=== PATIENT | male | born 1985 | race Caucasian/White ===

== ENCOUNTER 2017-07-05 09:53 | Day surgery (SDC) | payer OTHER ==
[2017-06-22 12:44] VITALS: Ht 182.9 cm; Wt 113.4 kg
--- NOTE | 2017-06-22 12:47 | DIAGNOSTIC IMAGING REPORT ---
CHEST 2 VIEWS ROUTINE CLINICAL HISTORY: PAT preoperative evaluation COMPARISON STUDY: No previous studies for comparison. FINDINGS: The bones soft tissues and hemidiaphragms are normal. The cardiomediastinal silhouette is normal. The lungs are clear. The pulmonary vasculature is normal. IMPRESSION: Negative chest. The above report was generated using voice recognition software. It may contain grammatical, syntax or spelling errors. Electronically signed by: Judd Valenzuela M.D. 06/22/2017 12:46 PM Dictated Date/Time: 06/22/2017 12:46 PM
[2017-06-22 12:54] LABS: BASO % 0.3 %; BASO ABS # 0.02 K/uL (0-0.2); EOS % 2.6 %; EOS ABS # 0.18 K/uL (0-0.5); HEMATOCRIT 43.9 % (42-52); HEMOGLOBIN 15.3 g/dL (14.0-18.0); IG# 0.02 K/uL (0.00-0.02); LYMPH % 30.5 %; LYMPH ABS # 2.08 K/uL (1.2-3.4); MEAN CELL VOLUME 86.1 fL (80-100); MEAN CORPUSCULAR HGB CONC 34.9 g/dl (32-36); MEAN PLATELET VOLUME 9.2 fL (7.4-10.4); MONO ABS # 0.61 K/uL (0.11-0.59); NEUT % 57.3 %; PLATELET COUNT 207 K/uL (130-400); RED CELL DISTRIBUTION WIDTH SD 41.3 fL (36.4-46.3); WHITE BLOOD COUNT 6.81 K/uL (4.8-10.8)
--- NOTE | 2017-06-22 13:05 | PAT Medication Instructions ---
Service Date Jun 22, 2017. Current Home Medication List Sertraline (Zoloft), 50 MG PO QPM Medication Instructions For Your Scheduled Surgery - Take the following medications as scheduled the night before surgery: Sertraline (Zoloft), 50 MG PO QPM If you have any questions please call us at [phone] or [phone] or [phone]
[2017-06-22 14:01] LABS: CALCIUM 8.5 mg/dl (8.5-10.1); CREATININE 0.88 mg/dl (0.60-1.40); POTASSIUM 4.1 mmol/L (3.5-5.1)
[~2017-07-05] VITALS: Ht 182.9 cm; Wt 113.4 kg
[~2017-07-05 09:53] MED LIST: CEFAZOLIN 2000MG IV PUSH 10 ML IV SCH; DEXAMETHASONE SOD INJ 4 MG/ML VIAL ONE; FENTANYL CITRATE INJ 50 MCG/1 ML 2 ML VIAL ONE; LACTATED RINGER'S 1000ML 1,000 ML IV SCH; LIDOCAINE HCL 2% 2 ML VIAL (20MG/ML) ONE; MIDAZOLAM HCL 1 MG/ML 2ML VIAL ONE; ONDANSETRON INJ 2 MG/ML 2 ML VIAL ONE; PROPOFOL IV EMULSION 10 MG/ML 20 ML VIAL IV ONE; SERT50TA PO
[2017-07-05] MEDS ORDERED: CEPH500C2 PO ×2 (10:13→13:41)
[2017-07-05 10:17] VITALS: BP 129/76; PULSE 91; TEMP 37.5; O2SAT 94
[2017-07-05] MEDS ORDERED: MIDAZOLAM HCL 1 MG/ML 2ML VIAL ONE (11:25)
[2017-07-05] MEDS ORDERED: BACITRACIN OINT 15 GM TUBE ONE (11:34)
[2017-07-05] MEDS ORDERED: BUPIVACAINE 0.5 % 5 MG/1 ML MPF 30ML VIAL ONE (11:35)
--- NOTE | 2017-07-05 11:46 | History & Physical Bridge Note ---
H&P Re-Evaluation Bridge Note: I have examined the patient, reviewed the History & Physical and in the interval since the performance of the History & Physical I have noted the following changes of clinical significance: No changes noted
[2017-07-05] MEDS ORDERED: ATROPINE SULFATE 0.1 MG/ML 5ML SYR IV PRN (12:00)
[2017-07-05] MEDS ORDERED: ONDANSETRON INJ 2 MG/ML 2 ML VIAL IV PRN (12:00)
[2017-07-05] MEDS ORDERED: KETOROLAC TROMETHAMINE 30 MG/ML VIAL IV. PRN (12:00)
[2017-07-05] MEDS ORDERED: FENTANYL CITRATE INJ 50 MCG/1 ML 2 ML VIAL IV PRN (12:00)
[2017-07-05] MEDS ORDERED: LABETALOL HCL IV 5 MG/ML 20ML IV PRN (12:00)
[2017-07-05] MEDS ORDERED: FENTANYL CITRATE INJ 50 MCG/1 ML 2 ML VIAL ONE ×2 (12:07→12:49)
[2017-07-05] MEDS ORDERED: DOCU-94 PO (13:41)
[2017-07-05] MEDS ORDERED: OXYC7.5T65 PO (13:41)
--- NOTE | 2017-07-05 13:43 | Discharge Instructions ---
Discharge Instructions Date of Service Jul 05, 2017. Admission Reason for Admission: Bilateral Hydrocele Discharge Discharge Diagnosis / Problem: Bilateral hydrocoele s/p hydrocoelectomy Discharge Goals Goal(s): Decrease discomfort, Improve function, Therapeutic intervention Activity Recommendations Activity Limitations: as noted below Lifting Limitations: no more than 25 pounds, gradually increase as tolerated ( over 5 days) Exercise/Sports Limitations: rest today, gradually increase as tolerated (no heavy exercise for 1 week) May Resume Sexual Activity: after two weeks Shower/Bathe: tomorrow (may shower in 24 hours, no tub bath) Driving or Machine Use: resume 1 day after discharge . Instructions / Follow-Up Instructions / Follow-Up Scrotal support and ice packs x 2 days then as needed for discomfort and swelling. Bacitracin ointment to incision three times a day Current Hospital Diet Patient's current hospital diet: Discharge Diet Recommended Diet: Regular Diet Procedures Procedures Performed: Scrotal exploration, Bilateral Hydrocelectomy, left side clot evacuation Pending Studies Studies pending at discharge: yes List of pending studies: Pathology report Medical Emergencies . Who to Call and When: Medical Emergencies: If at any time you feel your situation is an emergency, please call 911 immediately. . Non-Emergent Contact Non-Emergency issues call your: Urologist Call Non-Emergent contact if: you have a fever, temperature is above 101, your pain is not controlled, your pain is worsening, your pain is unusual for you, your pain is concerning you, wound has increased drainage, wound has increased redness, wound has increased pain, you have any medication questions . . "Provider Documentation" section prepared by Cristian Hernandez. . VTE Core Measure Inpt VTE Proph given/why not?: SCD's [place] Drug Monitoring Program Search Results: patient reviewed within database, no issues identified
[2017-07-05] MEDS ORDERED: OXYCODONE/ACETAMINOPHEN 5-325 TAB PO PRN ×2 (13:45)
--- NOTE | 2017-07-05 13:46 | [facility] Operative Report ---
Operative Report Operative Date Jul 05, 2017. Pre-Operative Diagnosis Bilateral Hydrocele Post-Operative Diagnosis Same as preop, left sided traumatic hematocoele Procedure(s) Performed Scrotal exploration, Bilateral Hydrocelectomy, left side clot evacuation Surgeon Dr. Marcela Hernandez Live In Housekeeper Nanny Surgeon(s) none Estimated Blood Loss 50 cc Findings Large hematocoele (~150 cc) on left-hand side after trauma 2-3 days ago evacuated, bilateral hydrocoele corrected and imbricated. Specimens A: left hydrocele sac B: right appendix epididymis C: right hydrocele sac Drains 1/4" Alpine Anesthesia GALMA + local Complication(s) None Disposition Recovery Room / PACU Indications 32-year-old male with a history of bilateral hydrocele, left greater than right was here today for correction. He notes an episode of trauma several days ago and feels he might of ruptured his hydrocele at that time. He is currently suffering from bruising, left greater than right with a decrease in the firmness of his hydrocele. It is felt that any traumatic changes can be corrected at the time of this intervention today. Please see H&P for further details. Intravenous Ancef used for antibiotic coverage and SCDs used for DVT prophylaxis. Description of Procedure Patient was properly identified and brought into the operative suite after identification of appropriate consent the chart. General anesthesia with laryngeal mask was initiated and patient was prepped and draped in the standard fashion for this procedure. Full timeout procedure was followed. Midline incision along the scrotal raphae was made using a 15 blade and brought into the left hemiscrotum towards the hydrocele sac. A fair amount of subcutaneous edema and old blood was present. Dissecting the hydrocele sac free from the surrounding scrotal tissue required a greater than average amount of Bovie cautery and sharp dissection due to inflammation and blood products within the subcutaneous tissue. Eventually the hydrocele sac was able to be delivered from the scrotum. This was then sharply entered with drainage of approximately 150 mL of old clot present around the testicle on this side. Testicle was noted to be viable with no evidence of injury or damage. A cord block was performed using plain lidocaine. The appendix testis and epididymis were removed. Wound was generously irrigated and excess tunica vaginalis was removed and sent for pathologic analysis. This was everted using a running 2-0 Vicryl suture. Hemostasis was obtained using Bovie cautery, suture ligature and ties as necessary. Tunica vaginalis was appreciated to indeed have ruptured on the medial side over the course of the dissection. Attention was then turned to the right side where easier dissection was undertaken. Hydrocele sac was delivered from the scrotum and sharply entered with drainage of straw-colored fluid. A scrotal timoteo was removed and a larger appendix epididymis was sent for pathologic analysis after removal. Hydrocele sac was trimmed with tissue being sent for pathology. This was everted again with a running 2-0 Vicryl suture. Adequate aperture for drainage of the cord was left intact. Cord block was also performed on this side prior to significant dissection. After this was complete the scrotum was generously irrigated. An incision was made in the inferior scrotum allowing for passage of a quarter- inch Alpine drain. This was passed through the midline scrotal wall to allow for drainage of both sides. This was secured in place using a 3-0 silk suture and trimmed short. Dartos fascia was closed using a running 2-0 Vicryl suture with care being taken to avoid entrapment of the Alpine drain. The skin was closed with vertical mattress sutures using 2-0 chromic. Bacitracin ointment was placed over the skin incision followed by fluffs and a scrotal support. Additional local anesthesia was provided level of the skin incision. General anesthesia was reversed patient was transferred to the recovery room in stable condition. Follow-up care: Patient will be discharged home with a prescription for Percocet , Keflex and Colace. Outpatient appointment for drain removal and wound check is confirmed. Postoperative limitations are reviewed. Patient is instructed to contact our service should he note any fevers, chills, nausea, vomiting or other difficulties in the postoperative period. I attest to the content of the Intraoperative Record and any orders documented therein. Any exceptions are noted below.
[2017-07-05 14:28] VITALS: BP 136/76; PULSE 68; TEMP 36.3; O2SAT 95
[2017-07-05 14:45] VITALS: BP 136/76; PULSE 74; TEMP 36.3; O2SAT 95
[2017-07-05 15:15] VITALS: BP 125/67; PULSE 72; TEMP 37.2; O2SAT 94
--- NOTE | 2017-07-05 15:23 | Anesthesiology Progress Note ---
Anesthesia Post Op Note Date & Time Jul 05, 2017 at 15:23 Vital Signs Pain Intensity: 0 Vital Signs Past 12 Hours Date Time Temp Pulse Resp B/P (MAP) Pulse Ox O2 Delivery O2 Flow Rate FiO2 07/05/17 14:28 36.3 68 20 136/76 95 Room Air 07/05/17 14:10 36.4 66 18 148/83 94 Room Air 07/05/17 14:00 70 21 153/84 94 Room Air 07/05/17 13:50 79 21 150/85 100 Oxymask 10 07/05/17 13:40 88 17 149/84 100 Oxymask 10 07/05/17 13:34 36.4 84 19 167/84 100 Oxymask 10 07/05/17 10:17 37.5 91 20 129/76 (93) 94 Room Air Notes Mental Status: alert / awake / arousable, participated in evaluation Pt Amnestic to Procedure: Yes Nausea / Vomiting: adequately controlled Pain: adequately controlled Airway Patency, RR, SpO2: stable & adequate BP & HR: stable & adequate Hydration State: stable & adequate Anesthetic Complications: no major complications apparent
[2017-07-05 16:00] VITALS: BP 132/68; PULSE 75; TEMP 37.2; O2SAT 96
== END 2017-07-05 16:00 | disposition home or self-care (01) ==
LOC: C.ACU 09:53
PROVIDERS: ATTEND Urology
DX: N43.3 Hydrocele, unspecified (principal); F41.9 Anxiety disorder, unspecified; E66.9 Obesity, unspecified; Z68.34 Body mass index [BMI] 34.0-34.9, adult; Z79.899 Other long term (current) drug therapy